=== PATIENT | male | born 1965 | race Caucasian/White ===

== ENCOUNTER 2017-09-10 08:38 | Emergency (ER) | payer MEDICAID ==
[~2017-09-10] VITALS: Ht 182.9 cm; Wt 90.0 kg
[2017-09-10 08:42] VITALS: BP 123/76
[2017-09-10] MEDS ORDERED: COD28PAS TP (09:49)
[2017-09-10] MEDS ORDERED: zinc oxide ointment 30gm tube TP ONE (20:00)
== END 2017-09-10 10:00 | disposition home or self-care (01) ==
LOC: ER 08:39
DX: R21 Rash and other nonspecific skin eruption (principal); Z59.0 Homelessness; Z56.0 Unemployment, unspecified; Z79.899 Other long term (current) drug therapy
CPT/HCPCS: 99283